=== PATIENT | male | born 1960 | race Caucasian/White ===

== ENCOUNTER 2018-07-22 07:31 | Day surgery (SDC) | payer BC ==
[~2018-07-22 07:31] MED LIST: PROPOFOL 200 MG INJ
[2018-07-22] MEDS ORDERED: DEXAMETHASONE 4 MG/ML 1 ML INJ (09:12)
[2018-07-22] MEDS ORDERED: MIDAZOLAM 1 MG/ML 2 ML INJ (09:12)
[2018-07-22] MEDS ORDERED: PROPOFOL 40 ML (09:12)
[2018-07-22] MEDS ORDERED: FENTAnyl 50 MCG/ML VIAL ×2 (09:12→09:50)
[2018-07-22] MEDS ORDERED: LIDOCAINE 2% (SDV) 5 ML INJ (09:12)
[2018-07-22] MEDS ORDERED: ONDANSETRON 4 MG INJ (09:12)
[2018-07-22] MEDS ORDERED: FAMOTIDINE 20 MG INJ (09:13)
[2018-07-22] MEDS ORDERED: CEFAZOLIN 1 GM INJ (09:13)
[2018-07-22] MEDS ORDERED: LABETALOL HCL 20MG INJ IV (10:30)
[2018-07-22] MEDS ORDERED: FENTAnyl 50 MCG/ML VIAL IV (10:30)
[2018-07-22] MEDS ORDERED: ALBUTEROL 0.083% (NEB) 2.5 MG/3 ML AMP HHN (10:30)
[2018-07-22] MEDS ORDERED: morphine (1 MG/ML) 10ML SYRINGE IV ×2 (10:30)
[2018-07-22] MEDS ORDERED: DIPHENHYDRAMINE 50 MG INJ IV (10:30)
[2018-07-22] MEDS ORDERED: HYDROmorphONE 1 MG/5 ML IV SYRINGE IV (10:30)
[2018-07-22] MEDS ORDERED: ONDANSETRON 4 MG INJ IV (10:30)
[2018-07-22] MEDS ORDERED: OXYCODONE/ACETAMINOPHEN (5/325) TAB PO ×2 (10:30)
[2018-07-22] MEDS ORDERED: MEPERIDINE 25 MG INJ IV (10:30)
[2018-07-22] MEDS: BUPIVACAINE 0.5% (SDV) 30 ML INJ (11:09)
[2018-07-22] MEDS: POLYMYXIN/BACITRACIN 1L IRRIG (11:09)
[2018-07-22] MEDS: LIDOCAINE 1%/EPI 30 ML INJ (11:09)
[2018-07-22] MEDS ORDERED: KETOROLAC 30 MG INJ (12:01)
[2018-07-22] MEDS: HYDROmorphONE 1 MG/5 ML IV SYRINGE IV (12:50)
[2018-07-22] MEDS: FENTAnyl 50 MCG/ML VIAL IV (12:50)
== END 2018-07-22 14:15 | disposition home or self-care (01) ==
LOC: SDS 07:31
DX: M18.12 Unilateral primary osteoarthritis of first carpometacarpal joint, left hand (principal)
CPT/HCPCS: 25447; 71045; 73140; 88304; 88311